=== PATIENT | female | born 1965 | race Caucasian/White ===

== ENCOUNTER 2024-12-19 15:04 | Outpatient (REF) | payer OTHER, SELFPAY ==
--- OUTSIDE RECORDS SUMMARY | 2024-12-19 09:00 | XMS_ITS | Encounter Summary ---
Author Organization [facility] Address [address] [place] [address] Care Team Providers Care Launderette Attendant Name Role Phone Rosaura Macias DO Unavailable [phone] Randy Montoya MD Primary Care Provider [phone] Reason for Visit * Reason Comments Well Women Visit Encounter Details Date Type Department Care Team ([facility] Contact Info) Description 12/19/2024 9:00 AM EDT Office Visit BERTIN Hdez [facility] [address] [place] [id number] Cydney Quesada PA [address] [place], [place] [id number] Well woman exam with routine gynecological exam; Postmenopausal state; Encounter for screening mammogram for malignant neoplasm of breast; Breast pain Social History Tobacco Use Types Packs/Day Years Used Date Smoking Tobacco: Never Smokeless Tobacco: Never Alcohol Use Standard Drinks/Week Comments Not Currently 3 (1 standard drink = 0.6 oz pur e alcohol) Comments No Sex and Gender Information Value Date Recorded Sex Assigned at Not on file Legal Sex Female 6:38 PM EDT Gender Identity Female 09/20/2023 8:35 AM EDT Sexual Orientation Straight 09/20/2023 8: 35 AM EDT documented as of this encounter Last Filed Vital Signs Vital Sign Reading Time Taken Comments Blood Pressure 100/80 12/19/2024 9:14 AM EDT Pulse - - Temperature - - Respiratory Rate - - Oxygen Saturation - - Inhaled Oxygen Concentration - - Weight 79 kg (174 lb 4 oz) 12/19/2024 9:14 AM ED T Height - - Body Mass Index 25.73 10/17/2024 12:55 PM EDT documented in this encounter Progress Notes * CAROL Barrett - 12/19/2024 9:00 AM EDT Reason for Appointment: Patient ID: Janene Gibson is a 59 y.o. female who presents for Well Women Visit Patient presents today for Annual Exam. MEDICATIONS Current Outpatient Medications Medication Instructions celecoxib (CELEBREX) 100 mg, Daily RT pregabalin (LYRICA) 50 mg, 2 times daily Ubrogepant (Ubrelvy) 100 MG tablet zolpidem (Ambien) 10 MG tablet Take one at bedtime ALLERGIES No Known Allergies PROBLEMS Active Ambulatory Problems Diagnosis Date Noted Premenstrual tension syndrome 09/23/2023 Migraine 09/23/2023 Acute reaction to stress 09/23/2023 Muscle spasm 09/23/2023 Tension type headache 09/23/2023 Primary insomnia 09/23/2023 Memory loss 09/23/2023 Weakness 09/23/2023 Paresthesia and pain of extremity 09/23/2023 Pain in left arm 09/23/2023 Vision changes 09/27/2023 Abnormal brain MRI 09/27/2023 Concussion wth loss of consciousness of 30 minutes or less 09/27/2023 Fall 09/27/2023 Resolved Ambulatory Problems Diagnosis Date Noted No Resolved Ambulatory Problems Past Medical History: Diagnosis Date Classical migraine 08/26/2009 Insomnia Numbness Tension headache 07/15/2016 Weakness of limb HISTORY PAST MEDICAL HISTORY SOCIAL HISTORY Past Medical History: Diagnosis Date Acute reaction to stress 06/14/2014 Classical migraine 08/26/2009 Insomnia Migraine 06/14/2014 Muscle spasm 07/15/2016 Numbness Premenstrual tension syndrome 08/26/2009 Tension headache 07/15/2016 Weakness of limb Social History Tobacco Use Smoking status: Never Smokeless tobacco: Never Substance Use Topics Alcohol use: Not Currently Alcohol/week: 3.0 - 4.0 standard drinks of alcohol Types: 3 - 4 Standard drinks or equivalent per week Drug use: Yes Frequency: 1.0 times per week Types: Marijuana Comment: Edibles occasionally for pain FAMILY HISTORY Family History Problem Relation Name Age of Onset No Known Problems Brother Dementia Father Randy Nicole Migraines Maternal Grandfather Fadumo Nicole Dementia Maternal Grandmother Melany Hernandez SURGICAL HISTORY Past Surgical History: Procedure Laterality Date ANTERIOR CERVICAL DISCECTOMY W/ FUSION 2022 CERVICAL FUSION 2022 CERVICAL SPINE SURGERY 11/2022 CT ANGIOGRAM HEART CORONARY 12/07/2022 CT ANGIOGRAM TAVR 12/07/2022 HYSTERECTOMY 03/02/2017 KNEE SURGERY 03/02/2017 NECK SURGERY 2024 REVIEW OF SYSTEMS Review of Systems: Review of Systems Constitutional: Negative. HENT: Negative. Eyes: Negative. Respiratory: Negative. Cardiovascular: Negative. Gastrointestinal: Negative. Genitourinary: Negative. Musculoskeletal: Negative. Skin: Negative. Neurological: Negative. All other systems reviewed and are negative. Hematological: Negative. Endocrine: Negative. Allergic/Immunologic: Negative. OBJECTIVE Objective: Physical Exam Constitutional: Appearance: Normal appearance. Genitourinary: Genitourinary Comments: History of bilateral breast implants, experiencing pain under left breast and into nipple with lymph nodes previous week per pt, none palpated today Cervix is absent. Uterus is absent. Breasts: Breasts are soft. Right: Normal. Breast implant present. Left: Normal. Breast implant present. HENT: Head: Normocephalic. Nose: Nose normal. Mouth/Throat: Mouth: Mucous membranes are moist. Cardiovascular: Rate and Rhythm: Normal rate. Pulmonary: Effort: Pulmonary effort is normal. Abdominal: General: Bowel sounds are normal. Palpations: Abdomen is soft. Musculoskeletal: General: Normal range of motion. Cervical back: Normal range of motion. Neurological: General: No focal deficit present. Mental Status: She is alert. Skin: General: Skin is warm and dry. Psychiatric: Mood and Affect: Mood normal. Vitals and nursing note reviewed. Exam conducted with a sailor present. Vitals: Estimated body mass index is 25.73 kg/m?? as calculated from the following: Height as of 10/17/24: 5' 9 . Weight as of this encounter: 174 lb 4 oz. BP: 100/80 No LMP recorded (lmp unknown). Patient has had a hysterectomy. ASSESSMENT & PLAN ICD-10-CM 1. Well woman exam with routine gynecological exam Z01.419 THIN PREP TIS PAP AND HR HPV DNA 2. Postmenopausal state Z78.0 3. Encounter for screening mammogram for malignant neoplasm of breast Z12.31 4. Breast pain N64.4 Bilateral diagnostic mammogram Bilateral diagnostic mammogram Annual Exam: Patient presents today for an annual exam. Patient states she is doing well and has no complaints. Pap was obtained without difficulty. Orders Placed This Encounter Procedures Bilateral diagnostic mammogram Follow Up: Patient is to return in one year for annual unless needed otherwise. Documented by CAROL Barrett on behalf of: CAROL Barrett documented in this encounter Plan of Treatment Scheduled Orders Name Type Priority Associated Diagnoses Orde r Schedule THIN PREP TIS PAP AND HR HPV DNA Pathology and Cytology Routine Well woman exam with routine gynecological exam Ordered: 12/19/2024 Bilateral diagnostic mammogram Imaging Routine Breast pain Expected: 12/19/2024 (Approximate), Expires: 02/19/2026 documented as of this encounter Visit Diagnoses Diagnosis Well woman exam with routine gynecological exam Routine gynecological examination Postmenopausal state Asymptomatic postmenopausal status (age-related) (natural) Encounter for screening mammogram for malignant neoplasm of breast Breast pain Mastodynia documented in this encounter Care Teams Launderette Attendant Relationship Specialty Start Date End Date Randy Montoya MD [address] [place] [address] PCP - General Family Medicine 04/13/24 Rosaura Macias DO [address] [place] [address] Referring Physician Neurology 04/13/24 documented as of this encounter
--- OUTSIDE RECORDS SUMMARY | 2024-12-19 15:08 | XMS_ITS | Encounter Summary ---
Author Organization [facility] Address [address] [place] [address] Care Team Providers Care Cabin Crew Name Role Phone Randy Montoya MD Primary Care Provider + Source Comments In the event this information is protected by the Federal Confidentiality of Alcohol and Drug AbusePatient Records regulations: The Federal rules restrict any use of the information to criminally investigate or prosecute any alcohol or drug abuse patient.[facility] Encounter Details Date Type Department Care Team (Late st Contact Info) Description 06/14/2024 Patient Msg [facility] [address] [place], [place] [id number] Provider, [facility] Preop Date/Day before Surgery Instructions Social History Tobacco Use Types Packs/Day Years Used Date Smoking Tobacco: Never Assessed PHQ-2 Answer Date Recorded PHQ-2 score 4 06/14/2024 Area Deprivation Index Answer Date Shahid rded National Score (1-100), lower number is lower ri sk 65 04/23/2023 State Score (1-10), lower number is lower risk 5 04/23/2023 Data from: https://www.neighborhoodatlas.medicine.[facility].edu/. Last address used for calculation [address] [place] [address] 04/23/2023 Comments Unknown Sex and Gender Information Value Date Recorded Sex Assigned at Not on file Legal Sex Female 9:45 AM EST Gender Identity Not on file Sexual Orientation Not on file documented as of this encounter Plan of Treatment Upcoming Encounters Date Type Department Care Team (Late st Contact Info) Description 01/09/2025 11:40 AM EDT Office Visit Spine Surgery [address] [place] [address] Saniya Sanchez PA-C [address] [place] [address] follow up from surgery- still having issues 02/01/2025 11:15 AM EDT Office Visit [facility] [address] [place] [address] Michelle Mcfadden MD [address] [place], [place] [phone] [place] 02/28/2025 1:20 PM EDT Office Visit [facility] [address] [place] [address] Galileo Troncoso MD [address] [place] [address] follow up documented as of this encounter Visit Diagnoses Not on filedocumented in this encounter Care Teams Cabin Crew Relationship Specialty Start Date End Date Randy Montoya MD [address] [place] [address], [address] [place] [address] PCP - General Internal Medicine 06/15/24 documented as of this encounter
--- OUTSIDE RECORDS SUMMARY | 2024-12-19 15:09 | XMS_ITS | Encounter Summary ---
Author Organization [facility] Address [id number] [address] [place] [address] Care Team Providers Care Audit Senior Associate Name Role Phone Randy Montoya MD Primary Care Provider [phone] Encounter Details Date Type Department Care Team (Late st Contact Info) Description 03/23/2023 Documentation [facility] [address] [place] [address] Sherrie Medley MD [address] [address] Social History Tobacco Use Types Packs/Day Years Used Date Smoking Tobacco: Never Smokeless Tobacco: Never Alcohol Use Standard Drinks/Week Comments Yes 0 (1 standard drink = 0.6 oz pur e alcohol) socially Social Connection and Isolat ion Panel [NHANES] Answer Date Recorded In a typical week, how many times do you talk on the phone with family, friends, or neighbors? Three times a week 04/24/2022 How often do you get togethe r with friends or relatives? Once a week 04/24/2022 How often do you attend chur ch or episcopal services? More than 4 times per year 04/24/2022 Do you belong to any clubs o r organizations such as scientologist groups, unions, fraternal or athletic groups, or school groups? No 04/24/2022 How often do you attend meet ings of the clubs or organizations you belong to? Never 04/24/2022 Are you , , di vorced, , never , or living with a partner? 04/24/2022 AUDIT-C Answer Date Recorded Q1: How often do you have a drink containing alc ohol? Monthly or less 04/24/2022 Q2: How many drinks containi ng alcohol do you have on a typical day when you are drinking? 3 or 4 04/24/2022 Q3: How often do you have si x or more drinks on one occasion? Less than monthly 04/24/2022 Overall Financial Resource Strain (CARDIA) Answe r Date Recorded How hard is it for you to pa y for the very basics like food, housing, medical care, and heating? Not very hard 04/24/2022 PHQ-2 Answer Date Recorded Total Score 7 04/24/2022 [facility] [place] of Occupat ional Health - Occupational Stress Questionnaire Answer Date Recorded Do you feel stress - tense, restless, nervous, or anxious, or unable to sleep at night because your mind is troubled all the time - these days? To some extent 04/24/2022 Exercise Vital Sign Answer Date Recorde d On average, how many days pe r week do you engage in moderate to strenuous exercise (like a brisk walk)? 3 days 04/24/2022 On average, how many minutes do you engage in exercise at this level? 30 min 04/24/2022 PRAPARE - Transportation Answer Date Re corded In the past 12 months, has l ack of transportation kept you from medical appointments or from getting medications? No 06/2021 In the past 12 months, has l ack of transportation kept you from meetings, work, or from getting things needed for daily living? No 04/24/2022 Childcare Answer Date Recorded Do problems getting child ca re make it difficult for you to work or study? No 04/24/2022 Employment Answer Date Recorded Do you need help finding a l ocal career center and/or a training program? No 04/24/2022 Purpose - Life Answer Date Recorded I have a purpose and direction in my life. Marcos wilson Agree nor Disagree 04/24/2022 Education Answer Date Recorded What is the highest level of school you have completed or the highest degree you have received? Associate degree: occupational, technical, or vocational program 04/24/2022 Comments No Sex and Gender Information Value Date Recorded Sex Assigned at Not on file Legal Sex Female 11:40 AM EDT Gender Identity Not on file Sexual Orientation Not on file documented as of this encounter Plan of Treatment Not on file documented as of this encounter Goals Goal Patient Goal Type Associated Problems Recent Progress Patient-Stated? Author Discharge General Yes Nereida Land, RN Note: Evaluation of progress towards goal: To return home with spouse upon discharge. documented as of this encounter Visit Diagnoses Not on filedocumented in this encounter Additional Health Concerns Assessment Noted Time PHQ-9 Depression Total Score: 7 04/24/20 22 10:46 AM EST documented as of this encounter Care Teams Audit Senior Associate Relationship Specialty Start Date End Date Randy Montoya MD [address] [place] [address], [address] [place] [address] PCP - General Pediatrics 03/01/17 documented as of this encounter
--- OUTSIDE RECORDS SUMMARY | 2024-12-19 15:09 | XMS_ITS | Encounter Summary ---
Author Organization [facility] Address [id number] [address] [place] [address] Care Team Providers Care Textile Pin Worker Name Role Phone Randy Montoya MD Primary Care Provider [phone] Encounter Details Date Type Department Care Team (Late st Contact Info) Description 04/21/2023 Documentation [facility] [address] [place] [address] Sherrie Medley MD [address] [address] Social History Tobacco Use Types Packs/Day Years Used Date Smoking Tobacco: Never Smokeless Tobacco: Never Alcohol Use Standard Drinks/Week Comments Not Currently 0 (1 standard drink = 0.6 oz pur e alcohol) Social Connection and Isolat ion Panel [NHANES] Answer Date Recorded In a typical week, how many times do you talk on the phone with family, friends, or neighbors? Three times a week 04/24/2022 How often do you get togethe r with friends or relatives? Once a week 04/24/2022 How often do you attend chur ch or christianity services? More than 4 times per year 04/24/2022 Do you belong to any clubs o r organizations such as worship groups, unions, fraternal or athletic groups, or [...] Answer Date Recorded Total Score 7 04/24/2022 [facility] Occupat ional Health - Occupational Stress [...] Recorded Do you need help finding a [facility] career center and/or a training program? No 04/24/2022 Hunger Screening Answer Date Recorded Within the past 12 months we worried whether our food would run out before we got money to buy more. Never True 04/12/2023 Within the past 12 months th e food we bought just didn't last and we didn't have money to get more. Never True 04/12/2023 Purpose - Life Answer Date Recorded I have a purpose and direction in my life. Marcos er Agree nor Disagree 04/24/2022 Education Answer Date [...] documented as of this encounter Care Teams Textile Pin Worker Relationship Specialty Start Date End Date Randy Montoya MD [address] [place] [address], [address] [place] [address] PCP - General Pediatrics 03/01/17 documented as of this encounter
--- OUTSIDE RECORDS SUMMARY | 2024-12-19 15:09 | XMS_ITS | Encounter Summary ---
Author Organization [employer] [facility] Address [id number] [address] [place] [address] Care Team Providers Care Student Advisor Name Role Phone Randy Montoya MD Primary Care Provider [phone] Encounter Details Date Type Department Care Team (Late st Contact Info) Description 06/05/2021 Telephone [facility] [address] [place] [phone] Randy Montoya MD [address] [place] [address], [address] [place] [address] Social History Tobacco Use Types Packs/Day Years Used Date Smoking Tobacco: Never Smokeless Tobacco: Never Alcohol Use Standard Drinks/Week Comments Yes 0 (1 standard drink = 0.6 oz pur e alcohol) SOMETIMES Social Connection and Isolat ion Panel [NHANES] Answer Date Recorded In a typical week, how many times do you talk on the phone with family, friends, or neighbors? More than three times a week 06/05/2021 How often do you get togethe r with friends or relatives? More than three times a week 06/05/2021 How often do you attend chur ch or mosque services? More than 4 times per year 06/05/2021 Do you belong to any clubs o r organizations such as jew groups, unions, fraternal or athletic groups, or school groups? No 06/05/2021 How often do you attend meet ings of the clubs or organizations you belong to? Never 06/05/2021 Are you , , di vorced, , never , or living with a partner? 06/05/2021 AUDIT-C Answer Date Recorded Q1: How often do you have a drink containing alc ohol? 2-4 times a month 06/05/2021 Q2: How many drinks containi ng alcohol do you have on a typical day when you are drinking? 3 or 4 06/05/2021 Q3: How often do you have si x or more drinks on one occasion? Less than monthly 06/05/2021 Overall Financial Resource Strain (CARDIA) Answe r Date Recorded How hard is it for you to pa y for the very basics like food, housing, medical care, and heating? Not very hard 06/05/2021 PHQ-2 Answer Date Recorded Total Score 8 06/05/2021 [facility] of Occupat ional Health - Occupational Stress Questionnaire Answer Date Recorded Do you feel stress - tense, restless, nervous, or anxious, or unable to sleep at night because your mind is troubled all the time - these days? Rather much 06/05/2021 Exercise Vital Sign Answer Date Recorde d On average, how many days pe r week do you engage in moderate to strenuous exercise (like a brisk walk)? 3 days 06/05/2021 On average, how many minutes do you engage in exercise at this level? 60 min 06/05/2021 PRAPARE - Transportation Answer Date Re corded In the past 12 months, has l ack of transportation kept you from medical appointments or from getting medications? No 05/24 In the past 12 months, has l ack of transportation kept you from meetings, work, or from getting things needed for daily living? No 06/05/2021 Childcare Answer Date Recorded Do problems getting child ca re make it difficult for you to work or study? No 06/05/2021 Employment Answer Date Recorded Do you need help finding a [facility] career center and/or a training program? No 06/05/2021 Purpose - Life Answer Date Recorded I have a purpose and direction in my life. Marcos wilson Agree nor Disagree 06/05/2021 Education Answer Date Recorded What is the highest level of school you have completed or the highest degree you have received? GED or equivalent Comments Unknown Sex and Gender Information Value Date Recorded Sex Assigned at Not on file Legal Sex Female 11:40 AM EDT Gender Identity Not on file Sexual Orientation Not on file documented as of this encounter Functional Status * Q1: How often do you have a drink containing alcohol? Answer Date of Assessment Author 2-4 times a month 06/05/2021 3:15 PM EST Mychart , Generic * Q2: How many drinks containing alcohol do you have on a typical day when you are drinking? Answer Date of Assessment Author 3 or 4 06/05/2021 3:15 PM EST Mychart, Generic * Q3: How often do you have six or more drinks on one occasion? Answer Date of Assessment Author Less than monthly 06/05/2021 3:15 PM EST Mychart , Generic documented as of this encounter Plan of Treatment Not on file documented as of this encounter Visit Diagnoses Not on filedocumented in this encounter Additional Health Concerns Infection Onset Date Last Indicated Resolved Time COVID-19 Positive 06/04/2021 06/04/2021 06/25/2021 11:12 PM EST Assessment Noted Time PHQ-9 Depression Total Score: 8 06/05/19 22 3:15 PM EST documented as of this encounter Care Teams Student Advisor Relationship Specialty Start Date End Date Randy Montoya MD [address] [place] [address], [address] [place] [address] PCP - General Pediatrics 03/01/17 documented as of this encounter
--- OUTSIDE RECORDS SUMMARY | 2024-12-19 15:09 | XMS_ITS | Encounter Summary ---
Author Organization [facility] Address [id number] [address] [place] [address] Care Team Providers Care Crutcher Helper Name Role Phone Randy Montoya MD Primary Care Provider [phone] Encounter Details Date Type Department Care Team (Late st Contact Info) Description 10/06/2022 Orders Only [facility] [address] [place] [address] Sherrie Medley MD [address] [address] Social History Tobacco Use Types Packs/Day Years [...] often do you attend chur ch or alevism services? More than 4 times per year 04/24/2022 Do you belong to any clubs o r organizations such as orthodox groups, unions, fraternal or athletic groups, or [...] Answer Date Recorded Total Score 7 04/24/2022 [facility] [place] of Occupat ional Health - Occupational Stress [...] on file documented as of this encounter Procedures Procedure Name Priority Date/Time Associated Diagnosis Comments EMG WITH NCV Routine 10/05/2022 documented in this encounter Results * EMG With NCV (10/05/2022) us Not In System Ref Prov NEUROLOGY ORDERABLES Leni l Result MANUALLY TRANSCRIBED RESULTS documented in this encounter Visit Diagnoses Not on filedocumented in this encounter Additional Health Concerns Assessment Noted Time PHQ-9 Depression Total Score: 7 04/24/20 22 10:46 AM EST documented as of this encounter Care Teams Crutcher Helper Relationship Specialty Start Date End Date Randy Montoya MD [address] [place] [address], [address] [place] [address] PCP - General Pediatrics 03/01/17 documented as of this encounter
--- OUTSIDE RECORDS SUMMARY | 2024-12-19 15:09 | XMS_ITS | Clinical Summary ---
Author Organization [facility] Address [address] [place] [address] Care Team Providers Care Heavy Machinery Operator Name Role Phone Randy Montoya MD Primary Care Provider + Allergies No known active allergies Medications zolpidem (AMBIEN) 10 mg Take by mouth. Active amitriptyline (ELAVIL) 25 mg tablet Take 25-50 mg by mouth daily at bedtime. Active acetaminophen (TYLENOL) 500 mg tablet 2 tablets by ORAL/FEEDING TUBE route every 8 hours. 07/10/2024 Active senna-docusate (SENNA-S) 8.6-50 mg per tablet 2 tablets by ORAL/FEEDING TUBE route two times a day. 20 tablet 07/10/2024 Active pregabalin (LYRICA) 50 mg capsuleIndicati ons:Cervical dystonia,Chroni c neck pain with history of cervical spinal surgery Take 1 capsule by mouth two times a day for 90 days. 60 capsule 2 09/29/2024 Active Active Problems Problem Noted Date Diagnosed Date Acute post-operative pain 07/10/2024 Assessment & Plan (07/10/2024 9:37 AM EST): Assessment: Post-op pain PLAN: -Well managed on PO regimen S/P cervical spinal fusion 07/10/2024 Cervical pseudoarthrosis, sequela 07/07/2024 Assessment & Plan (07/10/2024 9:37 AM EST): Assessment: S/p revision extension of fusion C4-T1 on 07/07 PLAN: -Pain control: continue present regimen -Drain removed -PT/OT rec no needs -Upright x-rays reviewed -DVT ppx: continue IPCs, heparin SQ bid -OOB for meals, mobilize at least 3x daily -Bowel regimen -D/c today -D/w Dr. Troncoso Abnormal brain MRI 09/27/2023 Migraine 09/23/2023 Assessment & Plan (06/21/2024 10:45 AM EST): Assessment: Has frequent ACEVEDO likely associated with chronic neck pain S/p occipital nerve blocks Uses atogepant PRN Paresthesia and pain of extremity 09/23/2023 Assessment & Plan (06/20/2024 3:01 PM EST): Assessment: Left arm numbness and tingling associated with neck pain. Also endorses weakness with grabbing motion Primary insomnia 09/23/2023 Assessment & Plan (06/20/2024 2:58 PM EST): Assessment: On zolpidem Premenstrual tension syndrome 09/23/2023 Postlaminectomy syndrome, cervical region 2023 Assessment & Plan (06/21/2024 10:46 AM EST): Assessment: See foraminal stenosis Cervical spondylosis without myelopathy 05/06/20 Foraminal stenosis of cervical region 12/29/2022 Assessment & Plan (06/21/2024 10:53 AM EST): Assessment: Hx of severe spinal stenosis at C5-6 s/p C5-7 discectomy with anterior and posterior fixation Has residual spondylosis without high grade stenosis However, continues to have significant neck pain with radiation to left arm with left arm weakness as well as headaches Now scheduled for spinal surgery wit Dr. Troncoso Resolved Problems Problem Noted Date Diagnosed Date Resolved Date Spinal stenosis of cervical region 01/26/2023 06/20/2024 Encounters Date Type Department Care Team Description 12/12/2024 Get Medical Advice [facility] [place] [address] [place] [address] Saniya Sanchez PA-C Botox scheduled in 10/26/2024 11:15 AM EDT Office Visit [facility] [address] [place], [place] [phone] Michelle Mcfadden MD Cervical dystonia (Primary Dx); Chronic neck pain with history of cervical spinal surgery; Neck pain; Myofascial pain syndrome 10/19/2024 Travel 10/05/2024 Telephone [facility] -[facility] [address] [place] [address] Michelle Mcfadden MD Insurance Authorization (Prior Auth Delayed:Additional info needed) 09/29/2024 1:00 PM EDT Office Visit [facility] [address] [place] [address] Rosaura Conway PA-C Cervical dystonia (Primary Dx); Chronic neck pain with history of cervical spinal surgery; Neck pain 09/25/2024 Get Medical Advice [facility] [place] [address] [phone] Galileo Troncoso MD Referral for Botox from Last 3 Months Family History Medical History Relation Comments Difficulty with anesthesia No Family History Social History Tobacco Use Types Packs/Day Years Used Date Smoking Tobacco: Never Passive Smoke Exposure: Never Smokeless Tobacco: Never Tobacco Cessation:Counseling Given: Not Answered Alcohol Use Standard Drinks/Week Comments Yes 0 (1 standard drink = 0.6 oz pure alcohol) 3 times a month per pt 06/21/2024 PHQ-2 Answer Date Recorded PHQ-2 score 3 09/11/2024 Area Deprivation Index Answer Date Shahid rded National Score (1-100), lower number is lower ri sk 65 04/23/2023 State Score (1-10), lower number is lower risk 5 04/23/2023 Data from: https://www.neighborhoodatlas.medicine.[facility].edu/. Last address used for calculation [address] [place] [address] 04/23/2023 Comments No Sex and Gender Information Value Date Recorded Sex Assigned at Not on file Legal Sex Female 9:45 AM EST Gender Identity Not on file Sexual Orientation Not on file Last Filed Vital Signs Vital Sign Reading Time Taken Comments Blood Pressure 98/59 07/10/2024 7:54 AM EST Pulse 79 07/10/2024 7:54 AM EST Temperature 36.7 C (98.1 F) 07/10/2024 7:54 AM EST Respiratory Rate 18 07/10/2024 7:54 AM EST Oxygen Saturation 98% 07/10/2024 7:54 AM EST Inhaled Oxygen Concentration - - Weight 75.8 kg (167 lb) 07/07/2024 5:57 AM EST Height 175.3 cm (5' 9 ) 07/07/2024 5:57 AM EST Body Mass Index 24.66 07/07/2024 5:57 AM EST Plan of Treatment Upcoming Encounters Date Type Department Care Team (Late st Contact Info) Description 01/09/2025 11:40 AM EDT Office Visit Spine Surgery [address] [place] [address] Saniya Sanchez PA-C [address] [place] [address] follow up from surgery- still having issues 02/01/2025 11:15 AM EDT Office Visit [facility] [address] [place] [address] Michelle Mcfadden MD [address] [place] [address] BOTOX 02/28/2025 1:20 PM EDT Office Visit [facility] [place] [address] [place] [address] Galileo Troncoso MD [address] [place] [address] follow up Health Maintenance Due Date Last Done Comments Anxiety Screening 08/16/1985 Depression Screening 08/16/1985 HIV Screening 08/16/1985 Hepatitis C Screening 08/16/1985 DTaP,Tdap,Td Vaccine (1 - Tdap) 08/16/1986 Hepatitis B Vaccine (1 of 3 - 19+ 3-dose series) 08/16/1986 Cervical Cancer Screening 08/16/[address] Colonography 08/16/2012 Cologuard (FIT-DNA) 08/16/2012 Colonoscopy 08/16/2012 Colorectal Cancer Screening 08/16/2012 Fecal Occult Blood 08/16/2012 Lipid Screening 08/16/2012 Sigmoidoscopy 08/16/2012 Pneumococcal Vaccine: 50+ (1 of 1 - PCV) 08/16/2017 Shingrix Vaccine (1 of 2) 08/16/2017 Influenza Vaccine (#1) 2025 8, 02/09/2017, 05/08/2014 Diabetes Screening 07/10/2027 07/10/2024, 0 07/09/2024, 07/08/2024, Additional history exists Medical Devices Implanted Type Area Toy Maker Device Identifier Shelf Expiration Date Model / Serial / Lot Graft Infuse 14mm Small Bovine Collagen Rhbmp-2 23mm Bone Absorbable Sponge - [id number] Implanted:Qty: 1 on 07/07/2024 by Galileo Troncoso MD at [facility] Bone [employer] 03/24/2025 [id number] / / [id number] Graft Bone 30cc 1mm-4mm Range Granules Cancellous Crushed - [id number] Implanted:Qty: 1 on 07/07/2024 by Galileo Troncoso MD at [facility] Bone N/A: [employer] 10/15/2027 03-0100-30 0 / [id number] / [id number] Set Screw M6 Setscrew Implanted:Qty: 12 on 07/07/2024 at [facility] Implant N/A: Spine - Cervical [employer] [id number] / / Multi Axial Screw 3.5 X 34mm Implanted:Qty: 2 on 07/07/2024 at [facility] Implant N/A: Spine - Cervical [employer] [id number] / / Multi Axial Screw 4.0 X 12mm Implanted:Qty: 2 on 07/07/2024 at [facility] Implant N/A: Spine - Cervical [employer] [id number] / / Francis Pre-Cut 3.5mm X 60mm Implanted:Qty: 2 on 07/07/2024 at [facility] Implant N/A: Spine - Cervical [employer] [id number] / / Multi Axial Screw 3.5 X 14mm Implanted:Qty: 2 on 07/07/2024 at [facility] Implant N/A: Spine - Cervical [employer] [id number] / / Procedures Procedure Name Priority Date/Time Associated Diagnosis Comments BASIC METABOLIC PANEL Routine 07/10/2024 5:50 AM EST from Last 3 Months or Most Recently Relevant to Health Maintenance Results * (ABNORMAL) BASIC METABOLIC PANEL (07/10/2024 5:50 AM EST) Glucose 101(H) 74 - 99 mg/dL 07/10/2024 7:20 AM EST [facility] Comment: The Canadian Diabetes Association (ADA) provides guidance for cutoff values for fasting glucose and random glucose. The ADA defines fasting as no caloric intake for at least 8 hours. Fasting plasma glucose results between 100 to 125 mg/dL indicate increased risk for diabetes (prediabetes). Fasting plasma glucose results greater than or equal to 126 mg/dL meet the criteria for diagnosis of diabetes. In the absence of unequivocal hyperglycemia, results should be confirmed by repeat testing. In a patient with classic symptoms of hyperglycemia or hyperglycemic crisis, random plasma glucose results greater than or equal to 200 mg/dL meet the criteria for diagnosis of diabetes. Reference: Standards of Medical Care in Diabetes 2016, Canadian Diabetes Association. Diabetes Care. 2016.39(Suppl 1). BUN 7 7 - 21 mg/dL 07/10/2024 7:20 AM [facility] Creatinine 0.76 0.58 - 0.96 mg/dL 07/10/2024 7:20 AM [facility] Sodium 141 136 - 144 mmol/L 07/10/2024 7:20 AM EST [facility] Potassium 4.0 3.7 - 5.1 mmol/L 07/10/2024 7:20 AM [facility] Chloride 105 98 - 107 mmol/L 07/10/2024 7:20 AM EST [facility] CO2 24 22 - 30 mmol/L 07/10/2024 7:20 AM EST [facility] Anion Gap 12 8 - 15 mmol/L 07/10/2024 7:20 AM [facility] Calcium, Total 9.4 8.5 - 10.2 mg/dL 07/10/2024 7:20 AM EST [facility] Estimated Glomerular Filtration Rate 92 >=60 mL/min/1.7 3m 07/10/2024 7:20 AM EST [facility] Comment:Estimated Glomerular Filtration Rate (eGFR) is calculated using the 2020 CKD-EPI creatinine equation. This equation utilizes serum creatinine, sex, and age as parameters. The creatinine assay has traceable calibration to isotope dilution- mass spectrometry. Refer to KDIGO guidelines for clinical interpretation. In patients with unstable renal function, e.g. those with acute kidney injury, the eGFR may not accurately reflect actual GFR. Blood BLOOD SPECIMEN / Unknown Venipuncture / Unknown 07/10/2024 5:50 AM EST 07/10/2024 6:26 AM EST us Galileo Troncoso MD LABORATORY Final Result [facility] [address] [facility] [address] [address], from Last 3 Months or Most Recently Relevant to Health Maintenance Insurance S Care Teams Heavy Machinery Operator Relationship Specialty Start Date End Date Randy Montoya MD [address] [place] [address], [address] [id number] PCP - General Internal Medicine 06/15/24
--- OUTSIDE RECORDS SUMMARY | 2024-12-19 15:09 | XMS_ITS | Encounter Summary ---
Author Organization [employer] Address [id number] [address] [place] [address] Care Team Providers Care Wafer Slicer Name Role Phone Randy Montoya MD Primary Care Provider [phone] Encounter Details Date Type Department Care Team (Late st Contact Info) Description 10/21/2022 Orders Only [facility] Internal Medicine/Pediatrics [address] [id number] Tara Pollard RMA Cervical spondylosis without myelopathy Social History Tobacco Use Types Packs/Day Years [...] often do you attend chur ch or mormon services? More than 4 times per year 04/24/2022 Do you belong to any clubs o r organizations such as holiness groups, unions, fraternal or athletic groups, or [...] Answer Date Recorded Total Score 7 04/24/2022 [facility] of Occupat ional Health - Occupational Stress [...] Diagnosis Comments EMG WITH NCV Routine 10/05/2022 Cervical spondylosis without myelopathy documented in this encounter Results * EMG (10/05/2022) 10/05/2022 us Sherrie Medley MD NEUROLOGY ORDERABLES Final Resul t MANUALLY TRANSCRIBED RESULTS documented in this encounter Visit Diagnoses Diagnosis Cervical spondylosis without myelopathy documented in this encounter Additional Health Concerns Assessment Noted Time PHQ-9 Depression Total Score: 7 04/24/20 22 10:46 AM EST documented as of this encounter Care Teams Wafer Slicer Relationship Specialty Start Date End Date Randy Montoya MD [address] [place] [address], [address] [place] [address] PCP - General Pediatrics 03/01/17 documented as of this encounter
--- OUTSIDE RECORDS SUMMARY | 2024-12-19 15:09 | XMS_ITS | Encounter Summary ---
Author Organization [employer] Address [facility] [id number] [address] [place] [address] Care Team Providers Care Shingle Weaver Name Role Phone Randy Montoya MD Primary Care Provider [phone] Encounter Details Date Type Department Care Team (Latest Contact Info) Description 12/12/2024 Travel Social History Tobacco Use Types Packs/Day Years [...] 04/24/2022 How often do you attend chur or confucianist services? More than 4 times per year 04/24/2022 Do you belong to any clubs o r organizations such as jain groups, unions, fraternal or athletic groups, or [...] Answer Date Recorded Total Score 7 04/24/2022 [facility] [place] of Occupat ional Health - Occupational Stress [...] Recorded Do you need help finding a [facility] and/or a training program? No 04/24/2022 Hunger Screening Answer Date Recorded Within the past 12 months we worried whether our food would run out before we got money to buy more. Never True 09/23/2023 Within the past 12 months th e food we bought just didn't last and we didn't have money to get more. Never True 09/23/2023 Purpose - Life Answer Date Recorded I [...] documented as of this encounter Care Teams Shingle Weaver Relationship Specialty Start Date End Date Randy Montoya MD [address] [place] [address], [address] [place] [address] PCP - General Pediatrics 03/01/17 documented as of this encounter
--- OUTSIDE RECORDS SUMMARY | 2024-12-19 15:09 | XMS_ITS | Clinical Summary ---
Author Organization [facility] Address [address] [phone] Phone Care Team Providers Care Locomotive Switch Operator Name Role Phone Unavailable Primary Care Provider Unavailabl e Social History Tobacco Use Types Packs/Day Years Used Date Smoking Tobacco: Never Assessed Comments Unknown Sex and Gender Information Value Date Recorded Sex Assigned at Not on file Legal Sex Female 3:31 PM EST Gender Identity Not on file Sexual Orientation Not on file Plan of Treatment Not on file
--- OUTSIDE RECORDS SUMMARY | 2024-12-19 15:09 | XMS_ITS | Encounter Summary ---
Author Organization [facility] Address [address] [place] [address] Care Team Providers Care Assistant Director Of Security Name Role Phone Randy Montoya MD Primary Care Provider + Source Comments In the event this information is protected by the Federal Confidentiality of Alcohol and Drug AbusePatient Records regulations: The Federal rules restrict any use of the information to criminally investigate or prosecute any alcohol or drug abuse patient.[facility] Encounter Details Date Type Department Care Team (Late st Contact Info) Description 12/12/2024 Get Medical Advice [facility] [place] [address] [phone] Saniya Sanchez PA-C [address] [place] [address] Botox scheduled in January Social History Tobacco Use Types Packs/Day Years Used Date Smoking Tobacco: Never Passive Smoke Exposure: Never Smokeless Tobacco: Never Alcohol Use Standard [...] is lower risk 5 04/23/2023 Data from: https://www.neighborhoodatlas.medicine.[facility].edu/. Last address used for calculation [address] 04/23/2023 Comments No Sex and Gender Information Value Date Recorded Sex Assigned at Not on file Legal Sex Female 9:45 AM EST Gender Identity Not on file Sexual Orientation Not on file documented as of this encounter Plan of Treatment Upcoming Encounters Date Type Department Care Team (Late st Contact Info) Description 01/09/2025 11:40 AM EDT Office Visit Spine Surgery [address] [place] [address] Saniya Sanchez PA-C [address] [place] [address] follow up from surgery- still having issues 02/01/2025 11:15 AM EDT Office Visit [facility] [address] [place] [address] Michelle Mcfadden MD [address] [place], [place] [phone] BOTOX 02/28/2025 1:20 PM EDT Office Visit [facility] [place] [address] [place] [address] Galileo Troncoso MD [address] [place], [place] [phone] follow up documented as of this encounter Visit Diagnoses Not on filedocumented in this encounter Care Teams Assistant Director Of Security Relationship Specialty Start Date End Date Randy Montoya MD [address] [place] [address], [address] [place] [address] PCP - General Internal Medicine 06/15/24 documented as of this encounter
--- OUTSIDE RECORDS SUMMARY | 2024-12-19 15:09 | XMS_ITS | Encounter Summary ---
Author Organization [facility] Address [address] [facility] [place] [address] Care Team Providers Care Rabbit Breeder Name Role Phone Rosaura Macias DO Unavailable [phone] Randy Montoya MD Primary Care Provider [phone] Encounter Details Date Type Department Care Team (Latest Contact Info) Description 12/12/2024 Travel Social History Tobacco Use Types Packs/Day Years Used Date Smoking Tobacco: Never Smokeless Tobacco: Never Alcohol Use Standard Drinks/Week Comments Not Currently 3 (1 standard drink = 0.6 oz pur e alcohol) Comments Unknown Sex and Gender Information Value Date Recorded Sex Assigned at Not on file Legal Sex Female 6:38 PM EDT Gender Identity Female 09/20/2023 8:35 AM EDT Sexual Orientation Straight 09/20/2023 8: 35 AM EDT documented as of this encounter Plan of Treatment Not on file documented as of this encounter Visit Diagnoses Not on filedocumented in this encounter Care Teams Rabbit Breeder Relationship Specialty Start Date End Date Randy Montoya MD [address] [place] [address] PCP - General Family Medicine 04/13/24 Rosaura Macias DO [address] [place] [address] Referring Physician Neurology 04/13/24 documented as of this encounter
--- OUTSIDE RECORDS SUMMARY | 2024-12-19 15:09 | XMS_ITS | Encounter Summary ---
Author Organization [facility] Address [address] [place] [address] Care Team Providers Care Fireperson Name Role Phone Randy Montoya MD Primary Care Provider + Source Comments In the event this information is protected by the Federal Confidentiality of Alcohol and Drug AbusePatient Records regulations: The Federal rules restrict any use of the information to criminally investigate or prosecute any alcohol or drug abuse patient.[facility] Encounter Details Date Type Department Care Team (Late st Contact Info) Description 06/26/2024 Patient Msg [facility] [place] [address] [phone] Provider, [facility] [employer] Education Class 2/4 @ 2pm Social History Tobacco Use Types Packs/Day Years Used Date Smoking Tobacco: Never Passive Smoke Exposure: Never Smokeless Tobacco: Never Alcohol Use Standard Drinks/Week Comments Yes 0 (1 standard drink = 0.6 oz pure alcohol) 3 times a month per pt 06/21/2024 PHQ-2 Answer Date Recorded PHQ-2 score 4 06/14/2024 Area Deprivation Index Answer Date Shahid rded National Score (1-100), lower number is lower ri sk 65 04/23/2023 State Score (1-10), lower number is lower risk 5 04/23/2023 Data from: https://www.neighborhoodatlas.medicine.[facility].edu/. Last address used for calculation [address] [...] AM EDT Office Visit Spine Surgery [address] [place] [address] Saniya Sanchez PA-C [address] [place], [place] [phone] follow up from surgery- still having issues 02/01/2025 11:15 AM EDT Office Visit [facility] [address] [place] [address] Michelle Mcfadden MD [address] [place], [place] [phone] BOTOX 02/28/2025 1:20 PM EDT Office Visit [facility] [place] [address] [place] [address] Galileo Troncoso MD [address] [place], [place] [phone] follow up documented as of this encounter Visit Diagnoses Not on filedocumented in this encounter Care Teams Fireperson Relationship Specialty Start Date End Date Randy Montoya MD [address] [place] [address], [address] [place], [place] [phone] PCP - General Internal Medicine 06/15/24 documented as of this encounter
--- OUTSIDE RECORDS SUMMARY | 2024-12-19 15:09 | XMS_ITS | Encounter Summary ---
Author Organization [facility] Address [address] [facility] [place] [address] Care Team Providers Care Clerical Support Name Role Phone Rosaura Macias DO Unavailable [phone] Randy Montoya MD Primary Care Provider [phone] Encounter Details Date Type Department Care Team (Late st Contact Info) Description 12/19/2024 Bamboo flowsheet BERTIN SOLIS [address] [address] Cydney Quesada PA [address] [place], [facility] Social History Tobacco Use Types Packs/Day Years [...] on filedocumented in this encounter Care Teams Clerical Support Relationship Specialty Start Date End Date Randy Montoay MD [address] [place] [facility] PCP - General Family Medicine 04/13/24 Rosaura Macias DO [address] [place] [address] Referring Physician Neurology 04/13/24 documented as of this encounter
--- OUTSIDE RECORDS SUMMARY | 2024-12-19 15:09 | XMS_ITS | Encounter Summary ---
Author Organization [facility] Address [address] [place] [address] Care Team Providers Care Fence Installer Foreman Name Role Phone Randy Montoya MD Primary Care Provider + Source Comments In the event this information is protected by the Federal Confidentiality of Alcohol and Drug AbusePatient Records regulations: The Federal rules restrict any use of the information to criminally investigate or prosecute any alcohol or drug abuse patient.[facility] Encounter Details Date Type Department Care Team (Late st Contact Info) Description 06/13/2024 Patient Msg [facility] [place] [address] [place], [place] [phone] Provider, [facility] Spine surgery information, please read Social History Tobacco Use Types Packs/Day Years Used Date Smoking Tobacco: Never Assessed PHQ-2 Answer Date Recorded PHQ-2 score 4 06/14/2024 Area Deprivation Index Answer Date Shahid rded National Score (1-100), lower number is lower ri sk 65 04/23/2023 State Score (1-10), lower number is lower risk 5 04/23/2023 Data from: https://www.neighborhoodatlas.medicine.[facility].edu/. Last address used for calculation [address] [place] [address] 04/23/2023 Comments Unknown Sex and Gender Information Value Date Recorded Sex Assigned at Not on file Legal Sex Female 9:45 AM EST Gender Identity Not on file Sexual Orientation Not on file documented as of this encounter Plan of Treatment Upcoming Encounters Date Type Department Care Team (Late st Contact Info) Description 01/09/2025 11:40 AM EDT Office Visit Spine Surgery [address] [facility] [address] [place] [address] Saniya Sanchez PA-C [address] [place] [address] follow up from surgery- still having issues 02/01/2025 11:15 AM EDT Office Visit [facility] [address] [place] [address] Michelle Mcfadden MD [address] [place], [place] [phone] BOTOX 02/28/2025 1:20 PM EDT Office Visit [facility] [place] [address] [place] [address] Galileo Troncoso MD [address] [place] [address] follow up documented as of this encounter Visit Diagnoses Not on filedocumented in this encounter Care Teams Fence Installer Foreman Relationship Specialty Start Date End Date Randy Montoya MD [address] [place] [address], [address] [place], [place] [phone] PCP - General Internal Medicine 06/15/24 documented as of this encounter
--- OUTSIDE RECORDS SUMMARY | 2024-12-19 15:09 | XMS_ITS | Encounter Summary ---
Author Organization [facility] Sys tem Address [id number] [address] [place] [address] Care Team Providers Care Applications Trainer Name Role Phone Randy Montoya MD Primary Care Provider [phone] Encounter Details Date Type Department Care Team (Late st Contact Info) Description 04/22/2021 Orders Only [facility] Internal Medicine/Pediatrics [address] [phone] External, Scanning Provider Social History Tobacco Use Types Packs/Day Years Used Date Smoking Tobacco: Never Smokeless Tobacco: Never Alcohol Use Standard Drinks/Week Comments Yes 0 (1 standard drink = 0.6 oz pur e alcohol) SOMETIMES Childcare Answer Date Recorded Childcare Unknown 11/02/2018 Employment Answer Date Recorded Employment Unknown 11/02/2018 Purpose - Life Answer Date Recorded Purpose and direction in life Unknown Comments Unknown Sex and Gender Information Value Date Recorded Sex Assigned at Not on file Legal Sex Female 11:40 AM EDT Gender Identity Not on file Sexual Orientation Not on file documented as of this encounter Plan of Treatment Not on file documented as of this encounter Procedures Procedure Name Priority Date/Time Associated Diagnosis Comments SARS COV 2 (COVID-19) STAT 04/18/2021 documented in this encounter Results * SARS COV 2 (COVID-19) (04/18/2021) EXTERNAL SARS COV 2 Negative Negative MANUALLY TRANSCRIBED RESULTS Comment:RESULT ATTACHED TO U [facility] CARE VISIT NASOPHARYNGEAL 04/18/2021 us Scanning Provider External MICROBIOLOGY - GENERA L ORDERABLES Final Result MANUALLY TRANSCRIBED RESULTS documented in this encounter Visit Diagnoses Not on filedocumented in this encounter Additional Health Concerns Infection Onset Date Last Indicated Resolved Time COVID-19 Rule-Out 06/04/2021 06/04/2021 06/04/2021 2:55 PM EST COVID-19 Positive 06/04/2021 06/04/2021 06/25/2021 11:12 PM EST documented as of this encounter Care Teams Applications Trainer Relationship Specialty Start Date End Date Randy Montoya MD [address] [place] [address], [address] [place] [address] PCP - General Pediatrics 03/01/17 documented as of this encounter
--- OUTSIDE RECORDS SUMMARY | 2024-12-19 15:09 | XMS_ITS | Encounter Summary ---
Author [facility] Address [id number] [address] [place] [address] Care Team Providers Care Diamond Mounter Name Role Phone Randy Montoya MD Primary Care Provider [phone] Encounter Details Date Type Department Care Team (Late st Contact Info) Description 03/22/2023 Orders Only [facility] [address] [facility] [address] [place] [address] Aston Hogan PA [address] [facility] [address] [place] [address] S/P cervical spinal fusion; Muscle spasm Social History Tobacco Use Types Packs/Day Years [...] often do you attend chur ch or oriental orthodox services? More than 4 times per year 04/24/2022 Do you belong to any clubs o r organizations such as baptist groups, unions, fraternal or athletic groups, or [...] Answer Date Recorded Total Score 7 04/24/2022 [facility] - Occupational [...] Do you need help finding a l al career center and/or a training program? No [...] as of this encounter Plan of Treatment Pending Results Name Type Priority Associated Diagnoses Date/Time Ambulatory referral to Neurology Outpatient Referral Routine S/P cervical spinal fusion Muscle spasm 03/17/2023 10:20 AM EDT documented as of this encounter Goals Goal Patient Goal Type Associated Problems Recent Progress Patient-Stated? Author Discharge General Yes Nereida Land, RN Note: Evaluation of progress towards goal: To return home with spouse upon discharge. documented as of this encounter Visit Diagnoses Diagnosis S/P cervical spinal fusion Arthrodesis status Muscle spasm Spasm of muscle documented in this encounter Additional Health Concerns Assessment Noted Time PHQ-9 Depression Total Score: 7 04/24/20 22 10:46 AM EST documented as of this encounter Care Teams Diamond Mounter Relationship Specialty Start Date End Date Randy Montoya MD [address] [place] [address], [address] [place] [address] PCP - General Pediatrics 03/01/17 documented as of this encounter
--- OUTSIDE RECORDS SUMMARY | 2024-12-19 15:09 | XMS_ITS | Encounter Summary ---
Author Organization [facility] Address [address] [place], [place] [id number] Care Team Providers Care Aircraft Ordnance Systems Mechanic Name Role Phone Randy Montoya MD Primary Care Provider + Source Comments In the event this information is protected by the Federal Confidentiality of Alcohol and Drug AbusePatient Records regulations: The Federal rules restrict any use of the information to criminally investigate or prosecute any alcohol or drug abuse patient.[facility] Reason for Visit * Reason Comments Radiology XR Encounter Details Date Type Department Care Team (Late st Contact Info) Description 09/16/2023 Radiology Radiology [address] [place] [address] Criss Lucas, RT(R) Radiology XR Social History Tobacco Use Types Packs/Day Years Used Date Smoking Tobacco: Never Assessed PHQ-2 Answer Date Recorded PHQ-2 score 2 09/14/2023 Area Deprivation Index Answer Date Shahid rded National Score (1-100), lower number is lower ri sk 65 04/23/2023 State Score (1-10), lower number is lower risk 5 04/23/2023 Data from: https://www.neighborhoodatlas.medicine.[facility].edu/. Last address used for calculation [address] [place] [address] 04/23/2023 Comments Unknown Sex and Gender Information Value Date Recorded Sex Assigned at Not on file Legal Sex Female 9:45 AM EST Gender Identity Not on file Sexual Orientation Not on file documented as of this encounter Progress Notes * Criss Lucas RT(R) - 09/16/2023 10:32 AM EDT Radiology Service Progress Note PATIENT NAME: Janene Gibson DATE OF SERVICE: September 16, 2023 TIME: 10:32 AM PATIENT IDENTITY VERIFICATION COMPLETED USING TWO (2) IDENTIFIERS: Name and Date of confirmedby patient verbally. FALL SCREENING: Has the patient had 2 falls in the last year or 1 fall with injury or currently using an Ambulatory Assistive Device (Walker, Cane, Wheelchair, Crutches, etc.)? No PATIENT GENDER DATA: Female. status: : No status: NO. PATIENT RELEVANT IMPLANT DATA REVIEWED: Not Applicable PATIENT PRESENTS WITH AN IMPLANTABLE OR ATTACHED COOK FISH EGGS: No RADIOLOGY DEPARTMENT: General X-ray: Exam(s) Completed: Spine X-Ray(s): Cervical AP / LAT / FLEX-EXT PERIPHERAL IV DATA: Not applicable SIGNED BY: RT Ad(R) September 16, 2023 10:32 AM documented in this encounter Plan of Treatment Upcoming Encounters Date Type Department Care Team (Late st Contact Info) Description 01/09/2025 11:40 AM EDT Office Visit Spine Surgery [address] [place] [address] [address] [place] [id number] Saniya Sanchez PA-C [address] [place] [address] follow up from surgery- still having issues 02/01/2025 11:15 AM EDT Office Visit [facility] [address] [place] [address] Michelle Mcfadden MD [address] [place] [address] B[place]OX 02/28/2025 1:20 PM EDT Office Visit [facility] [address] [place] [address] Galileo Troncoso MD [address] [place] [address] follow up documented as of this encounter Visit Diagnoses Not on filedocumented in this encounter Care Teams Aircraft Ordnance Systems Mechanic Relationship Specialty Start Date End Date Randy Montoya MD [address] [place] [address], [address] [place] [address] PCP - General Internal Medicine 06/15/24 documented as of this encounter
--- OUTSIDE RECORDS SUMMARY | 2024-12-19 15:09 | XMS_ITS | Clinical Summary ---
Author Organization [facility] Address [address] [place] [address] Care Team Providers Care Intermediate Manager Name Role Phone Rosaura Macias DO Unavailable [phone] Randy Montoya MD Primary Care Provider [phone] Allergies No known active allergies Medications Ubrogepant (Ubrelvy) 100 MG tablet 03/23/2023 Active celecoxib (CeleBREX) 100 MG capsule Take 100 mg by mouth in the morning. 10/04/2024 Active pregabalin (Lyrica) 50 MG capsule Take 50 mg by mouth in the morning and 50 mg in the evening. 09/29/2024 Active zolpidem (Ambien) 10 MG tabletIndicatio ns:Primary insomnia Take one at bedtime 30 tablet 2 10/17/2024 Active Active Problems Problem Noted Date Diagnosed Date Vision changes 09/27/2023 Abnormal brain MRI 09/27/2023 Concussion wth loss of consciousness of 30 minut es or less 09/27/2023 Fall 09/27/2023 Premenstrual tension syndrome 09/23/2023 Migraine 09/23/2023 Acute reaction to stress 09/23/2023 Muscle spasm 09/23/2023 Tension type headache 09/23/2023 Primary insomnia 09/23/2023 Memory loss 09/23/2023 Weakness 09/23/2023 Paresthesia and pain of extremity 09/23/2023 Pain in left arm 09/23/2023 Encounters Date Type Department Care Team Description 12/19/2024 9:00 AM EDT Office Visit [facility] [address] [place] [phone] Cydney Quesada PA Well woman exam with routine gynecological exam; Postmenopausal state; Encounter for screening mammogram for malignant neoplasm of breast; Breast pain 12/19/2024 Bamboo flowsheet [facility] [address] [place] [address] Cydney Quesada PA 12/12/2024 Travel 10/17/2024 1:00 PM EDT Office Visit [facility] [address] [place] [phone] Cassie Beckett NP Cervicalgia (Primary Dx); Primary insomnia; Chronic tension-type headache, intractable 10/17/2024 Bamboo flowsheet [facility] [address] [place] [phone] Cassie Beckett NP 10/10/2024 Travel from Last 3 Months Family History Medical History Relation Name Comments No Known Problems Brother Dementia Father Randy Nicole Migraines Maternal Grandfather Fadumo Nicole Dementia Maternal Grandmother Melany Hernandez Relation Name Status Comments Brother Father Randy Nicole Maternal Grandfather Fadumo Nicole Maternal Grandmother Melany Hernandez Social History Tobacco Use Types Packs/Day Years [...] Orientation Straight 09/20/2023 8: 35 AM EDT Last Filed Vital Signs Vital Sign Reading Time Taken Comments Blood Pressure 100/80 12/19/2024 9:14 AM EDT Pulse 83 10/17/2024 12:55 PM EDT Temperature - - Respiratory Rate - - Oxygen Saturation 99% 04/25/2024 11:56 AM EST Inhaled Oxygen Concentration - - Weight 79 kg (174 lb 4 oz) 12/19/2024 9:14 AM ED T Height 175.3 cm (5' 9 ) 10/17/2024 12:55 PM EDT Body Mass Index 25.73 10/17/2024 12:55 PM EDT Plan of Treatment Health Maintenance Due Date Last Done Comments CT Colonography 1967 Colonoscopy 1967 Colorectal Cancer Screening 1967 FIT-DNA 1967 FIT 1967 FOBT 1967 Sigmoidoscopy 1967 Pap Smear 08/16/1988 Cervical Cancer Screening 08/16/1997 HPV/Cotest 08/16/1997 Mammogram 2007 Influenza Vaccine (#1) 2025 04/06/2018, 2016, 05/08/2014 Insurance [employer] Member Subscriber Plan / Payer (Ef fective 2023-Present) Name:Janene Gibson Relation to Subscriber:Spouse Name:CORNELLNURYSMT Date of :1950 Address: [address] [place] [address] Payer ID:Not on file Group ID:[id number] Type:Not on file Address: [place] [id number] Care Teams Intermediate Manager Relationship Specialty Start Date End Date Randy Montoya MD [address] [place] [address] PCP - General Family Medicine 04/13/24 Rosaura Macias DO [address] [place] [address] Referring Physician Neurology 04/13/24
--- OUTSIDE RECORDS SUMMARY | 2024-12-19 15:09 | XMS_ITS | Encounter Summary ---
Author Organization [employer] Address [id number] [address] [place] [address] Care Team Providers Care Seating Upholsterer Name Role Phone Randy Montoya MD Primary Care Provider [phone] Encounter Details Date Type Department Care Team (Late st Contact Info) Description 11/15/2024 Telephone [facility] [address] [facility] [address] [place] [phone] Jaclyn Gross Social History Tobacco Use Types Packs/Day Years [...] often do you attend chur ch or yazidi services? More than 4 times per year 04/24/2022 Do you belong to any clubs o r organizations such as catholic groups, unions, fraternal or athletic groups, or [...] Answer Date Recorded Total Score 7 04/24/2022 [facility]at ional Health - Occupational Stress [...] on file documented as of this encounter Miscellaneous Notes * Telephone Encounter - Jaclyn Gross - 11/15/2024 1:10 PM EDT Patient would like [facility] had CSI 10/04/24 They are aware they need to wait for 3 months to have the gel injection Insurance [facility] [place] * Telephone Encounter - Darlene Marroquin - 11/15/2024 1:10 PM EDT MMOH/RX PRIME--- LEFT KNEE SYNVISC-ONE S/P CSI 10/04/2024 Nell documented in this encounter Plan of Treatment Not on file documented as of this encounter Goals Goal Patient Goal Type Associated Problems Recent Progress Patient-Stated? Author Discharge General Yes Nereida Land, SKYLER Note: Evaluation of progress towards goal: To return home with spouse upon discharge. documented as of this encounter Visit Diagnoses Not on filedocumented in this encounter Additional Health Concerns Assessment Noted Time PHQ-9 Depression Total Score: 7 04/24/20 22 10:46 AM EST documented as of this encounter Care Teams Seating Upholsterer Relationship Specialty Start Date End Date Randy Montoya MD [address] [place] [address], [address] [place] [address] PCP - General Pediatrics 03/01/17 documented as of this encounter
--- OUTSIDE RECORDS SUMMARY | 2024-12-19 15:09 | XMS_ITS | Encounter Summary ---
[facility] Address [id number] [address] [place] [address] Care Team Providers Care Aviation Survival Technician Name Role Phone Randy Montoya MD Primary Care Provider [phone] Encounter Details Date Type Department Care Team (Late st Contact Info) Description 12/27/2023 Orders Only [facility] Internal Medicine/Pediatrics [address] [phone] Tara Pollard RMA [place] Social History Tobacco Use Types Packs/Day Years [...] often do you attend chur ch or orthodox services? More than 4 times per [...] Answer Date Recorded Total Score 7 04/24/2022 [facility] ional Health - Occupational [...] Recorded Do you need help finding a [employer] al career center and/or a training program? [...] Progress Patient-Stated? Author Discharge General Yes Nereida Land RN Note: Evaluation of progress towards goal: To return home with spouse upon discharge. documented as of this encounter Procedures Procedure Name Priority Date/Time Associated Diagnosis Comments CBC WITH AUTO DIFFERENTIAL Routine 12/24/2023 [place] APTT Routine 12/24/2023 [place] PROTIME & INR Routine 12/24/2023 [place] documented in this encounter Results * APTT (12/24/2023) Blood 12/24/2023 Randy Montoya MD LAB BLOOD ORDERABLES Final Re sult Performing Organization Address [facility] [[email or web address]] de Phone Number SUNQUEST * CBC auto differential (12/24/2023) 12/24/2023 Randy Montoya MD LAB BLOOD ORDERABLES Final Re sult Performing Organization Address [facility] Co de Phone Number SUNQUEST * Protime-INR (12/24/2023) Blood 12/24/2023 Randy Montoya MD LAB BLOOD ORDERABLES Final Re sult Performing Organization Address [facility] [[email or web address]] de Phone Number SUNQUEST documented in this encounter Visit Diagnoses Diagnosis Bruising Contusion of unspecified site documented in this encounter Additional Health Concerns Assessment Noted Time PHQ-9 Depression Total Score: 7 04/24/20 22 10:46 AM EST documented as of this encounter Care Teams Aviation Survival Technician Relationship Specialty Start Date End Date Randy Montoya MD [address] [place] [address], [address] [place] [address] PCP - General Pediatrics 03/01/17 documented as of this encounter
--- OUTSIDE RECORDS SUMMARY | 2024-12-19 15:09 | XMS_ITS | Encounter Summary ---
Author Organization [facility] Sys tem Address [id number] [address] [place] [address] Care Team Providers Care Microbiology Lab Analyst Name Role Phone Randy Montoya MD Primary Care Provider [phone] Encounter Details Date Type Department Care Team (Late st Contact Info) Description 03/18/2021 Orders Only [facility] Internal Medicine/Pediatrics [address] [phone] External, Scanning Provider Social History Tobacco Use [...] Procedure Name Priority Date/Time Associated Diagnosis Comments MULTIPLE LABS Routine 03/14/2021 XR CHEST 2 VWS Routine 03/14/2021 documented in this encounter Results * Multiple labs (03/14/2021) 03/14/2021 Narrative MANUALLY TRANSCRIBED RESULTS - 03/14/2021 Ordering Physician: Aston Morales DO us Scanning Provider External MA IMAGING Final Result MANUALLY TRANSCRIBED RESULTS * X-ray chest 2 views (03/14/2021) Anatomical Region Laterality Modality Body, Chest N/A Computed Radiogr aphy 03/14/2021 Narrative 03/14/2021 Ordering Physician: Aston Morales DO us Scanning Provider External IMG DIAGNOSTIC IMAGIN G ORDERABLES Final Result documented in this encounter Visit Diagnoses Not on filedocumented in this encounter Additional Health Concerns Infection Onset Date Last Indicated Resolved Time COVID-19 Rule-Out 06/04/2021 06/04/2021 06/04/2021 2:55 PM EST COVID-19 Positive 06/04/2021 06/04/2021 06/25/2021 11:12 PM EST documented as of this encounter Care Teams Microbiology Lab Analyst Relationship Specialty Start Date End Date Randy Montoya MD [address] [place] [address], [address] [place] [address] PCP - General Pediatrics 03/01/17 documented as of this encounter
--- OUTSIDE RECORDS SUMMARY | 2024-12-19 15:09 | XMS_ITS | Clinical Summary ---
Author Organization [facility] Address [id number] [address] [place] [address] Care Team Providers Care Art Museum Docent Name Role Phone Randy Montoya MD Primary Care Provider [phone] Allergies No known active allergies Medications zolpidem (AMBIEN) 10 mg tablet Take 1 tablet (10 mg total) by mouth nightly as needed for sleep. Active UBRELVY 100 mg tablet 03/23/20 23 Active celecoxib (CeleBREX) 100 mg capsuleIndications :Primary osteoarthritis of left knee,Post-traumati c osteoarthritis of right knee TAKE 1 CAPSULE (100 MG TOTAL) BY MOUTH IN THE MORNING 30 capsule 1 11/29/19 25 Active celecoxib (CeleBREX) 100 mg capsuleIndications :Primary osteoarthritis of left knee,Post-traumati c osteoarthritis of right knee Take 1 capsule (100 mg total) by mouth in the morning. 30 capsule 1 10/05/19 25 025 Discontinued Active Problems Problem Noted Date Diagnosed Date Postlaminectomy syndrome, cervical region 2023 Intervertebral disc stenosis of neural canal of cervical region 06/15/2023 Cervical spondylosis without myelopathy 05/06/20 23 Spinal stenosis of cervical region 01/26/2023 Paresthesia 12/29/2022 Cervical radiculopathy 12/29/2022 Foraminal stenosis of cervical region 12/29/2022 Resolved Problems Problem Noted Date Diagnosed Date Resolved Date Post lumbar puncture headache 04/04/2023 04/05/2023 Cervical spondylosis 11/10/2022 023 Cervical radiculopathy 11/10/202212/01 Cervical spinal stenosis 11/10/202203/2023 Encounters Date Type Department Care Team Description 12/12/2024 Travel 11/28/2024 Refill [facility] [address] [place] [phone] Garo Ding PA Primary osteoarthritis of left knee; Post-traumatic osteoarthritis of right knee 11/15/2024 Telephone [facility] [address] [place] [phone] Jaclyn Gross 10/04/2024 9:05 AM EDT Ancillary Procedure [facility] [address] [place] [phone] Pain in both knees, unspecified chronicity 10/04/2024 9:00 AM EDT Office Visit [facility] [address] [place] [address] Sandip Mejias MD Primary osteoarthritis of left knee (Primary Dx); Post-traumatic osteoarthritis of right knee 10/04/2024 8:55 AM EDT Ancillary Procedure [facility] [address] [place] [phone] Pain in both knees, unspecified chronicity 10/02/2024 Travel 09/29/2024 10:00 AM EDT Office Visit [facility] Medicine/Pediatrics [address] [place] [address] Randy Montoya MD Acute non-recurrent sinusitis, unspecified location (Primary Dx) 09/29/2024 Orders Only [facility] [address] [place] [phone] Mirtha Mejia CNA Pain in both knees, unspecified chronicity (Primary Dx) 09/29/2024 Orders Only [facility] [address] [place] [phone] Mirtha Mejia, SUBSTATION MAINTENANCE TECHNICIAN Pain in both knees, unspecified chronicity (Primary Dx) 09/29/2024 Travel 09/28/2024 Travel from Last 3 Months Immunizations Immunization Administration Dates Next Due Influenza (IM) Preservative Free 05/08/2014 Influenza, Injectable, quadrivalent (PF) 018,02/09/2017 Family History Medical History Relation Name Comments No Known Problems Brother No Known Problems Father Back Problems Maternal Grandfather Heart disease Maternal Grandfather Alzheimer's disease Maternal Grandmother Neck Problems Maternal Grandmother No Known Problems Mother No Known Problems Paternal Aunt No Known Problems Paternal Grandfather No Known Problems Paternal Grandmother Parkinsonism Paternal Uncle Anesthesia problems Neg Hx Relation Name Status Comments Brother Father Maternal Grandfather Maternal Grandmother Mother Paternal Aunt Paternal Grandfather Paternal Grandmother Paternal Uncle Social History Tobacco Use Types Packs/Day Years Used Date Smoking Tobacco: Never Smokeless Tobacco: Never Tobacco Cessation:Counseling Given: No Alcohol Use Standard Drinks/Week Comments Not Currently [...] How often do you attend chur or spiritism services? More than 4 times per year 04/24/2022 Do you belong to any clubs o r organizations such as zoroastrian groups, unions, fraternal or athletic groups, or [...] Date Recorded Total Score 7 04/24/2022 [facility] - Occupational Stress Questionnaire Answer Date Recorded [...] Recorded Do you need help finding a [facility] career center and/or a training program? No [...] Sign Reading Time Taken Comments Blood Pressure 118/73 09/29/2024 9:44 AM EDT Pulse 89 09/29/2024 9:44 AM EDT Temperature 36.6 C (97.8 F) 09/29/2024 9:44 AM EDT Respiratory Rate 18 09/23/2023 9:43 AM EDT Oxygen Saturation 97% 09/29/2024 9:44 AM EDT Inhaled Oxygen Concentration - - Weight 74.3 kg (163 lb 12.8 oz) 10/04/2024 8:50 AM EDT Height 175.3 cm (5' 9.02 ) 10/04/2024 8:50 AM ED T Body Mass Index 24.18 10/04/2024 8:50 AM EDT Plan of Treatment Health Maintenance Due Date Last Done Comments DTaP,Tdap and Td Vaccines (1 - Tdap) 08/16/1986 Zoster (Shingles) Vaccine (1 of 2) 08/16/2017 Depression Screening 04/24/2023 04/24/2022 COVID-19 Vaccine (3 - 2023-2 5 season) 2024 08/28/2020, 08/07/2020 Influenza Vaccine 01/22/2025 04/06/2018, , 05/08/2014 Adult BMI Screening 10/04/2025 10/04/2024 Tobacco Screening 10/04/2025 10/04/2024 Goals Goal Patient Goal Type Associated Problems Recent Progress Patient-Stated? Author Discharge General Yes Nereida Land, RN Note: Evaluation of progress towards goal: To return home with spouse upon discharge. Medical Devices Implanted Type Area Mental Health Program Specialist Device Identifier Shelf Expiration Date Model / Serial / Lot Graft Bn 1ml Moises Puros Rpl [id number] - [id number] Implanted:Qt y: 1 on 12/01/2022 by Sherrie Medley MD at [facility] Graft N/A: Spine Cervical Trang Spine 08/01/2024 [id number] / / [id number] Graft Bn Bn Fbr 2.5cc Moises Frzdr Pliafx Prm Rpl [id number] 5+Specials [id number] - [id number] - [id number] Implanted:Qt y: 1 on 01/26/2023 by Sherrie Medley MD at [facility] Graft Spine Cervical Lifenet 09/14/2027 [id number] / [id number] / Spacer Spnl 16x6mm Vrtstck 14mm Pk Crv Intrbd Fs - [id number] Implanted:Qt y: 1 on 12/01/2022 by Sherrie Medley MD at [facility] Other Implant N/A: Spine Cervical use MDTR SPIN 02/04/2030 [id number] / / [id number] Spacer Spnl 16x6mm Vrtstck 14mm Pk Crv Intrbd Fs - [id number] Implanted:Qt y: 1 on 12/01/2022 by Sherrie Medley MD at [facility] Other Implant N/A: Spine Cervical use MDTR SPIN 04/09/2030 [id number] / / [id number] Plate Bn 39mm 2 Lvl Zevo Spne Crv Ant Ti - [id number] Implanted:Qt y: 1 on 12/01/2022 by Sherrie Medley MD at [facility] Plate N/A: Spine Cervical Medtronics Sofamor Danek [id number] / / Francis Spnl 40mm 3.5mm Pcut - [id number] Implanted:Qt y: 2 on 01/26/2023 by Sherrie Medley MD at [facility] Francis Spine Cervical use MDTR SPIN [id number] / / Screw Bn 13mm 3.5mm Va Slf Drl Spne Crv Ant Ti Zevo - [id number] Implanted:Qt y: 6 on 12/01/2022 by Sherrie Medley MD at [facility] Screw N/A: Spine Cervical Medtronics Sofamor Danek [id number] / / Screw Bn 14mm 3.5mm Ma Spne Oc Upr Thor Infnt Ns Lf - [id number] Implanted:Qt y: 6 on 01/26/2023 by Sherrie Medley MD at [facility] Screw Spine Cervical use MDTR SPIN [id number] / / Screw Set M6 Spne Oc Upr Thor Infnt Ns Lf Rpl Special [id number] - [id number] Implanted:Qt y: 6 on 01/26/2023 by Sherrie Medley MD at [facility] Screw Spine Cervical Medtronics Operatixaisha Rodriguez [id number] / / Procedures Procedure Name Priority Date/Time Associated Diagnosis Comments XR KNEE LT 3 VWS Routine 10/04/2024 9:13 AM EDT Pain in both knees, unspecified chronicity XR KNEE RT 3 VWS Routine 10/04/2024 9:13 AM EDT Pain in both knees, unspecified chronicity from Last 3 Months Results * X-ray knee left 3 views (10/04/2024 9:13 AM EDT) Anatomical Region Laterality Modality Lower Extremities, MSK, Knee Left Com puted Radiography Narrative 10/04/2024 9:13 AM EDT AP, Lateral, and Axial view xrays of the affected knee obtained in the office today demonstrates early primary osteoarthritis with lateral joint space spurring and narrowing. Similar changes are noted in the patellofemoral joint. Moderate left knee primary osteoarthritis Sandip Mejias MD [facility] O RDERAB[facility] Edited Result - Final * X-ray knee right 3 views (10/04/2024 9:13 AM EDT) Anatomical Region Laterality Modality Lower Extremities, MSK, Knee Right Com puted Radiography Narrative 10/04/2024 9:13 AM EDT AP, Lateral, and Axial view xrays of the affected knee obtained in the office today demonstrates end-stage posttraumatic osteoarthritis of the right knee with previous ACL tunnel noted. There is significant lateral joint space [id number] change in peripheral osteophyte formation. Similar changes are noted in the patellofemoral joint. Severe right knee end-stage posttraumatic arthritis Sandip Mejias MD [facility] O RDER[facility]LES Edited Result - Final from Last 3 Months Insurance [employer] Advance Directives * Full Code (Latest Code Status on File) Date Activated Date Inactivated Comments 04/04/2023 10:15 PM 04/05/2023 2:17 PM * Full Code Date Activated Date Inactivated Comments 01/26/2023 10:17 AM 01/29/2023 2:48 PM Care Teams Art Museum Docent Relationship Specialty Start Date End Date Randy Montoya MD [address] [place] [address], [address] [place] [id number] PCP - General Pediatrics 03/01/17
--- OUTSIDE RECORDS SUMMARY | 2024-12-19 15:09 | XMS_ITS | Encounter Summary ---
Author Organization [facility] Address [id number] [address] [place] [address] Care Team Providers Care Spiritual Advisor Name Role Phone Randy Montoya MD Primary Care Provider [phone] Encounter Details Date Type Department Care Team (Late st Contact Info) Description 04/13/2023 Telephone [facility] [address] [place] [address] Sherrie Medley MD [address] [address] Social History Tobacco Use Types Packs/Day Years [...] often do you attend chur ch or methodist services? More than 4 times per year 04/24/2022 Do you belong to any clubs o r organizations such as taoist groups, unions, fraternal or athletic groups, or [...] Date Recorded Total Score 7 04/24/2022 [facility] Occupat ional Health - [...] Recorded Do you need help finding a [facility] career [facility] and/or a training program? No [...] encounter Miscellaneous Notes * Telephone Encounter - Arie Young - 04/13/2023 11:00 AM EST Janene called and left a message on medical forms line regarding paperwork and voya forms RT * Telephone Encounter - Arie Young - 04/13/2023 11:00 AM EST Returned patients call. I told her I will have to ask DR Medley about extending her time off of work due to no documentation. * Telephone Encounter - Sherrie Medley MD - 04/13/2023 11:00 AM EST From my standpoint at this point she may return to work and if she feels unable to do her regular work, then we need an FCE done. And in the meantime he can keep her off work documented in this encounter Plan of Treatment [...] Time PHQ-9 Depression Total Score: 7 04/24/20 10:46 AM EST documented as of this encounter Care Teams Spiritual Advisor Relationship Specialty Start Date End Date Randy Montoya MD [address] [place] [address], [address] [place] [address] PCP - General Pediatrics 03/01/17 documented as of this encounter
--- OUTSIDE RECORDS SUMMARY | 2024-12-19 15:09 | XMS_ITS | Encounter Summary ---
Author Organization [facility] Address [id number] [address] [place] [address] Care Team Providers Care Wrapper Sorter Name Role Phone Randy Montoya MD Primary Care Provider [phone] Reason for Visit * Reason Comments Med Refill Encounter Details Date Type Department Care Team (Late st Contact Info) Description 01/02/2024 Refill [facility] [address] [place] [address] Sherrie Medley MD [address] [address] Social History Tobacco Use Types Packs/Day Years [...] often do you attend chur ch or jewish services? More than 4 times per year 04/24/2022 Do you belong to any clubs o r organizations such as cheondoism groups, unions, fraternal or athletic groups, or [...] Answer Date Recorded Total Score 7 04/24/2022 [facility] of Occupat ional Health - [...] Recorded Do you need help finding a [facility] career center and/or a training [...] a purpose and direction in my life. Neith er Agree nor Disagree 04/24/2022 Education Answer [...] encounter Miscellaneous Notes * Telephone Encounter - Sherrie Medley MD - 01/02/2024 12:51 AM EDT Analgesic medications were no longer appropriate. Please make referral to pain management and make sure she has a follow-up to see us. * Telephone Encounter - Sherrie Medley MD - 01/02/2024 12:51 AM EDT I would not recommend tramadol. If she thinks in his trunk pain medicine then pain management referral would be advised. documented in this encounter Plan of Treatment [...] documented as of this encounter Care Teams Wrapper Sorter Relationship Specialty Start Date End Date Randy Montoya MD [address] [place] [address], [address] [place] [address] PCP - General Pediatrics 03/01/17 documented as of this encounter
--- OUTSIDE RECORDS SUMMARY | 2024-12-19 15:09 | XMS_ITS | Encounter Summary ---
Author Organization [facility] Address [facility]-[id number] [address] [place] [address] Care Team Providers Care Medical Field Representative Name Role Phone Randy Montoya MD Primary Care Provider [phone] Encounter Details Date Type Department Care Team (Late st Contact Info) Description 10/27/2022 Telephone [facility] [address] [place] [phone] Elias Iqbal PA [address] [facility] [place], [place] [id number] Social History Tobacco Use Types Packs/Day Years [...] often do you attend chur ch or advent services? More than 4 times per year [...] Answer Date Recorded Total Score 7 04/24/2022 [facility] of Occupat ional Health - Occupational Stress [...] encounter Miscellaneous Notes * Telephone Encounter - Karley Barnett - 10/27/2022 11:03 AM EDT Patient called 10/27/2022 requesting to send a neuro consult to [facility]. Per last office visit Neuro was requested patient was to call in with name of physician. * Telephone Encounter - Natalie Triplett RN - 10/27/2022 11:03 AM EDT See separate encounter with new referral attached to review and sign. documented in this encounter Plan of Treatment Not on file documented as of this encounter Visit Diagnoses Not on filedocumented in this encounter Additional Health Concerns Assessment Noted Time PHQ-9 Depression Total Score: 7 04/24/20 22 10:46 AM EST documented as of this encounter Care Teams Medical Field Representative Relationship Specialty Start Date End Date Randy Montoya MD [address] [place] [address], [address] [place] [address] PCP - General Pediatrics 03/01/17 documented as of this encounter
[2024-12-21 14:10] LABS: Age Gdln ACOG Testing Note (.); IGP, Aptima HPV, rfx 16/18,45 Note (.)
== END 2024-12-19 15:05 | disposition home or self-care (01) ==
LOC: LAB 15:04
PROVIDERS: Visit Provider Physician Assistant
DX: Z01.419 Encounter for gynecological examination (general) (routine) without abnormal findings (principal)
CPT/HCPCS: 87624; 88175